=== PATIENT | male | born 2000 | race Hispanic/Latino ===

== ENCOUNTER 2022-03-31 09:43 | Emergency (ER) | payer SELFPAY ==
[2022-03-31 10:11] VITALS: BP 159/76; PULSE 73; RESP 18; TEMP 36.8; O2SAT 100
--- NOTE | 2022-03-31 10:29 | ED.WOUNDLAC ---
HPI - Wound/Laceration General Chief Complaint: Wound/Laceration Stated Complaint: finger lac Time Seen by Provider: 03/31/22 09:57 History of Present Illness HPI narrative: 21-year-old male presents emergency room for evaluation of laceration to his left hand. Patient states he was at [employer] just prior to arrival and was trying to separate 2 plastic pockets with spatula. Spatula was sharp on 1 end and he accidentally cut his hand on it. Related Data Allergies Allergy/AdvReac Type Severity Reaction Status Date / Time No Known Allergies Allergy Verified 03/31/22 10:10 Review of Systems Review of Systems: CONSTITUTIONAL: Denies fever, chills, or sweats. EYES: Denies visual changes, redness, or discharge. ENT: Denies rhinorrhea, congestion, sore throat, or otalgia. CARDIOVASCULAR: Denies chest pain, palpitations, or edema. RESPIRATORY: Denies cough or dyspnea. GASTROINTESTINAL: Denies abdominal pain, nausea, vomiting, or diarrhea. GENITOURINARY: Denies dysuria or hematuria. SKIN: Reports laceration left hand MUSCULOSKELETAL: Denies back pain, joint pain, or myalgia. NEUROLOGIC: Denies headache, numbness, dizziness, or weakness. PSYCHIATRIC: Denies anxiety or depression. Exam Narrative: GENERAL: Well-appearing, well-nourished, no physical limitations, and in no acute distress. HEAD: Normocephalic, atraumatic. EYES: Conjunctivae normal, PERRLA and EOMI. CHEST: Clear to auscultation. No respiratory distress. No wheezes rales or rhonchi. No tenderness. HEART: Regular rate and rhythm. No murmur heard. Normal peripheral pulses. EXTREMITIES: Normal range of motion. No edema. No clubbing or cyanosis SKIN: Left hand: 4 cm linear laceration to the palmar surface NEURO: No focal deficits. Alert and oriented x3. MAEW. CN's II-XI intact bilaterally, normal gait PSYCH: Cooperative. Normal mood and affect. Course Vital Signs Vital signs: Vital Signs Temperature 36.8 C 03/31/22 10:11 Pulse Rate 73 03/31/22 10:11 Respiratory Rate 18 03/31/22 10:11 Blood Pressure 159/76 H 03/31/22 10:11 Pulse Oximetry 100 03/31/22 10:11 Temperature 36.8 C 03/31/22 10:11 Pulse Rate 73 03/31/22 10:11 Respiratory Rate 18 03/31/22 10:11 Blood Pressure 159/76 H 03/31/22 10:11 Pulse Oximetry 100 03/31/22 10:11 Procedures Laceration Laceration 1: Date: 03/31/22 Time: 10:31 Site: hand Side (If applicable): left Size (cm): 4 Description: linear Depth: simple, single layer Local Anesthetic: lidocaine 1% Amount of anesthesia used (mL): 6 Pre-repair: wound explored and irrigated ====== Skin Level ====== Skin layer closed with: nylon Size (cm): 4-0 Number of sutures: 7 Technique: simple, interrupted ====== Subcutaneous Layer ====== ====== Muscle Layer ====== ====== Tendon Layer ====== Discharge Plan Discharge Clinical Impression: Laceration Patient Disposition: Home, Self-Care Condition: Stable Instructions: Antibiotic Form, Laceration (ED) Additional Instructions: Keep wound clean and dry. Stitches come out in 10 days. Monitor for signs of infection which include redness, swelling, and purulent drainage. Recommend against exposing her hand to dirty water. Prescriptions: New cephalexin 500 mg capsule 500 mg PO Q12H 7 Days Qty: 14 0RF Follow-up/Referrals: PHYSICIAN,[employer] [facility] [Primary Care Provider] - Time of Disposition: 10:32
--- NOTE | 2022-03-31 11:12 | PC.NURSE ---
Pt was originally discharged before his tetanus shot was administered but I called the pt and he is going to return to receive the shot.
[2022-03-31] MEDS: TETANUS,DIPHTHERIA,AC PERTUSSIS ADULT (0.5 ML) BOOSTRIX IM (11:43)
[2022-03-31 11:46] VITALS: BP 137/83; PULSE 68; RESP 16; O2SAT 98
== END 2022-03-31 11:47 | disposition home or self-care (01) ==
PROVIDERS: Emergency Provider Nurse Practitioner Family
DX: S61.412A Laceration without foreign body of left hand, initial encounter (principal); Z23 Encounter for immunization; W27.8XXA Contact with other nonpowered hand tool, initial encounter
CPT/HCPCS: 12002; 90471; 90715; 99283

== ENCOUNTER 2022-04-10 10:10 | Emergency (ER) | payer SELFPAY ==
[2022-04-10 10:22] VITALS: BP 124/71; PULSE 83; RESP 16; TEMP 36.7; O2SAT 99
--- NOTE | 2022-04-10 12:16 | ED.GENADULT ---
HPI - General Adult General Chief complaint: Unspecified Stated complaint: need stitches removed Time Seen by Provider: 04/10/22 12:01 Source: RN notes reviewed History of Present Illness HPI narrative: Patient presents to emergency room from home for suture removal. Patient states he had a laceration of his left hand that occurred on 03/31/2022 [facility] emergency department had 7 stitches placed in the palm of his left hand states he cut himself with a piece of plastic at that time he denies any bleeding from wound denies any other signs of infection denies any numbness or tingling Related Data Allergies Allergy/AdvReac Type Severity Reaction Status Date / Time No Known Allergies Allergy Verified 03/31/22 10:10 Review of Systems Review of Systems: Gen.: Denies fevers or chills Musculoskeletal: Denies any hand pain Neuro: Denies numbness, tingling, weakness Skin: See HPI Endo: Denies DM PMFSH Past Medical History Medical History (Updated 04/10/22 @ 12:19 by Singh Ceballos DO) Patient denies significant medical history Social History Social History (Updated 04/10/22 @ 12:18 by Singh Ceballos DO) Smoking status: Never smoker Exam Narrative: APPEARANCE: No acute distress, nontoxic, resting in bed Eyes: EOMI HEENT: Normocephalic, atraumatic, RESPIRATORY: No respiratory distress MUSCULOSKELETAl: Left hand with healing wound with 7 stitches present no bleeding or surrounding erythema of the wound full flexion-extension of all 5 MCP and IP joints, neurovascular intact NEURO: Awake and alert. Following commands, speech normal, no focal deficits SKIN:: Warm, dry. Normal Color no rash or lesions Course Course Emergency Course: Procedure note: Sutures were removed by myself using a pair of tweezers and scissors 7 stitches were removed wound remained closed. Patient tolerated the procedure well Discussed with patient results of workup and diagnosis. Discussed need for follow-up with primary care, proper use of medication, and reasons to return to the emergency department. Patient understands and agrees to current treatment plan Vital Signs Vital signs: Vital Signs Temperature 98.1 F 04/10/22 10:22 Pulse Rate 83 04/10/22 10:22 Respiratory Rate 16 04/10/22 10:22 Blood Pressure 124/71 09/19/22 10:22 Pulse Oximetry 99 04/10/22 10:22 Oxygen Delivery Room Air 04/10/22 10:22 Temperature 98.1 F 04/10/22 10:22 Pulse Rate 83 04/10/22 10:22 Respiratory Rate 16 04/10/22 10:22 Blood Pressure 124/71 04/10/22 10:22 Pulse Oximetry 99 04/10/22 10:22 Oxygen Delivery Room Air 04/10/22 10:22 Medical Decision Making Vital Signs Vital Signs: Vital Signs Temperature 98.1 F 04/10/22 10:22 Pulse Rate 83 04/10/22 10:22 Respiratory Rate 16 04/10/22 10:22 Blood Pressure 124/71 04/10/22 10:22 Pulse Oximetry 99 04/10/22 10:22 Oxygen Delivery Room Air 04/10/22 10:22 Temperature 98.1 F 04/10/22 10:22 Pulse Rate 83 04/10/22 10:22 Respiratory Rate 16 04/10/22 10:22 Blood Pressure 124/71 04/10/22 10:22 Pulse Oximetry 99 04/10/22 10:22 Oxygen Delivery Room Air 04/10/22 10:22 Discharge Plan Discharge Clinical Impression: Encounter for removal of sutures Patient Disposition: Home, Self-Care Condition: Stable Instructions: Antibiotic Form, Stitches Removal (ED) Prescriptions: No Action cephalexin 500 mg capsule 500 mg PO Q12H 7 Days Qty: 14 0RF Follow-up/Referrals: Fito Lujan MD [Physician] - (Follow-up in 1-2 days for further on-call physician treatment and evaluation) PHYSICIAN,PIZZA MAKER [Primary Care Provider] - Time of Disposition: 12:19
== END 2022-04-10 12:25 | disposition home or self-care (01) ==
PROVIDERS: Emergency Provider Emergency Medicine
DX: S61.412D Laceration without foreign body of left hand, subsequent encounter (principal); W26.8XXD Contact with other sharp object(s), not elsewhere classified, subsequent encounter
CPT/HCPCS: 99281